=== PATIENT | male | born 2000 | race Two or more races ===

== ENCOUNTER 2022-10-03 22:35 | Emergency (ER) | payer OTHER | END 2022-10-04 00:56 | disposition left against medical advice (07) | LOC: ER 22:35 | DX: R05.9 Cough, unspecified (principal); Z53.21 Procedure and treatment not carried out due to patient leaving prior to being seen by health care provider ==

== ENCOUNTER 2023-01-23 19:55 | Emergency (ER) | payer OTHER ==
[~2023-01-23] VITALS: Ht 175.3 cm; Wt 85.0 kg
[2023-01-23 22:51] LABS: Urine Bacteria NONE SEEN /hpf (None Seen); Urine Blood Negative /uL (Negative); Urine Mucus FEW (None Seen); Urine Specific Gravity 1.021 (1.001-1.035); Urine WBC 1 /hpf (0 - 3)
[2023-01-23] MEDS ORDERED: AZITHROMYCIN 250 MG TAB PO ONE (23:30)
[2023-01-23] MEDS ORDERED: cefTRIAXone SOD 1,000 MG VL IM ONE (23:30)
[2023-01-24 02:22] VITALS: BP 141/73
[2023-01-25 08:07] LABS: RPR Non Reactive (Non Reactive)
== END 2023-01-24 02:35 | disposition home or self-care (01) ==
LOC: ER 20:03
DX: Z20.2 Contact with and (suspected) exposure to infections with a predominantly sexual mode of transmission (principal)
CPT/HCPCS: 36415; 81001; 86592; 86703; 86706; 86803; 87491; 87591; 96372; 99283; J0696